=== PATIENT | female | born 1990 | race Two or more races ===

== ENCOUNTER 2016-12-14 09:28 | Emergency (ER) | payer SELFPAY ==
[~2016-12-14] VITALS: Ht 152.4 cm; Wt 70.8 kg
[2016-12-14 10:18] LABS: Basophils # (auto) 0 uL; Basophils % (auto) 0.1 % (0.0-2.0); Eosinophils # (auto) 0 uL; Hemoglobin 13.6 g/dL (12.2-16.2); Lymphocytes # (auto) 1.3 uL; Lymphocytes % (auto) 20.3 % (10.0-50.0); Mean Corpuscular Hemoglobin 29.5 pg (28.0-32.0); Mean Corpuscular Volume 86.7 fL (80.0-100.0); Mean Platelet Volume 9.4 fL (7.4-10.4); Monocytes # (auto) 0.4 uL; Monocytes % (auto) 5.9 % (0.0-12.0); Neutrophils # (auto) 4.7 uL; Neutrophils % (auto) 73.7 % (37.0-80.0); Platelet Count (auto) 161 10^3/uL (140-450); Red Cell Distribution Width 13.1 % (11.6-16.0); White Blood Cell 6.4 10^3/uL (4.4-10.8)
[2016-12-14 10:41] LABS: Albumin 3.3 g/dL (3.4-5.0); BUN/Creatinine Ratio 16.3; Bilirubin, Total 0.5 mg/dL (0.2-1.0); Calcium 8.9 mg/dL (8.5-10.1); Potassium 4.1 mmol/L (3.5-5.1); Total Protein 7.4 g/dL (6.4-8.2)
[2016-12-14 13:00] VITALS: BP 122/70
== END 2016-12-14 13:37 | disposition home or self-care (01) ==
LOC: ER 09:28
DX: O26.891 Other specified pregnancy related conditions, first trimester (principal); N89.8 Other specified noninflammatory disorders of vagina; Z3A.12 12 weeks gestation of pregnancy; R10.9 Unspecified abdominal pain
CPT/HCPCS: 36415; 76801; 80053; 84702; 85025

== ENCOUNTER 2017-04-06 19:54 | Observation (INO) | payer MEDICAID | END 2017-04-06 21:26 | disposition home or self-care (01) | DRG 566 | LOC: LDRP 19:54 | PROVIDERS: ADMIT Obstetrics & Gynecology; ATTEND Obstetrics & Gynecology | DX: O26.893 Other specified pregnancy related conditions, third trimester (principal); Z3A.28 28 weeks gestation of pregnancy | CPT/HCPCS: 59025; 76818; 81002; G0378 ==

== ENCOUNTER 2017-04-21 09:50 | Observation (INO) | payer MEDICAID ==
[2017-04-21] MEDS ORDERED: TERBUTALINE SULFATE 1 MG/ML 1ML VIAL SC ONE (10:27)
[2017-04-21] MEDS ORDERED: TERBUTALINE SULFATE 1 MG/ML 1ML VIAL SC SCH (10:30)
== END 2017-04-21 12:05 | disposition home or self-care (01) | DRG 563 ==
LOC: LDRP 09:50
PROVIDERS: ADMIT Obstetrics & Gynecology; ATTEND Obstetrics & Gynecology
DX: O60.03 Preterm labor without delivery, third trimester (principal); Z3A.30 30 weeks gestation of pregnancy
CPT/HCPCS: 59025; 76818; 81002; G0378; J3105

== ENCOUNTER 2017-04-28 11:45 | Observation (INO) | payer MEDICAID | END 2017-04-28 12:50 | disposition home or self-care (01) | DRG 566 | LOC: LDRP 11:45 | PROVIDERS: ADMIT Obstetrics & Gynecology; ATTEND Obstetrics & Gynecology | DX: O12.03 Gestational edema, third trimester (principal); Z3A.31 31 weeks gestation of pregnancy | CPT/HCPCS: 59025; 76818; 81002; G0378 ==

== ENCOUNTER 2017-05-07 11:55 | Observation (INO) | payer MEDICAID | END 2017-05-07 13:00 | disposition home or self-care (01) | DRG 563 | LOC: LDRP 11:55 | PROVIDERS: ADMIT Specialist; ATTEND Specialist | DX: O60.03 Preterm labor without delivery, third trimester (principal); Z3A.33 33 weeks gestation of pregnancy | CPT/HCPCS: 59025; 76818; 81002; G0378 ==

== ENCOUNTER 2017-05-10 12:30 | Observation (INO) | payer MEDICAID ==
[2017-05-10] MEDS ORDERED: TERBUTALINE SULFATE 1 MG/ML 1ML VIAL SC ONE (14:15)
== END 2017-05-10 15:00 | disposition home or self-care (01) | DRG 566 ==
LOC: LDRP 12:30
PROVIDERS: ADMIT Obstetrics & Gynecology; ATTEND Obstetrics & Gynecology
DX: O36.4XX0 Maternal care for intrauterine death, not applicable or unspecified (principal); O26.899 Other specified pregnancy related conditions, unspecified trimester; R10.9 Unspecified abdominal pain; Z3A.00 Weeks of gestation of pregnancy not specified
CPT/HCPCS: 59025; 76818; 81002; 96372; G0378; J3105

== ENCOUNTER 2017-05-19 12:47 | Observation (INO) | payer MEDICAID | END 2017-05-19 14:30 | disposition home or self-care (01) | DRG 566 | LOC: LDRP 12:47 | PROVIDERS: ADMIT Obstetrics & Gynecology; ATTEND Obstetrics & Gynecology | DX: O26.893 Other specified pregnancy related conditions, third trimester (principal); Z3A.34 34 weeks gestation of pregnancy; O60.03 Preterm labor without delivery, third trimester | CPT/HCPCS: 59025; 76818; 81002; G0378 ==

== ENCOUNTER 2017-05-28 12:00 | Observation (INO) | payer MEDICAID | END 2017-05-28 13:30 | disposition home or self-care (01) | DRG 566 | LOC: LDRP 12:00 | PROVIDERS: ADMIT Obstetrics & Gynecology; ATTEND Obstetrics & Gynecology | DX: O36.4XX0 Maternal care for intrauterine death, not applicable or unspecified (principal); Z3A.36 36 weeks gestation of pregnancy | CPT/HCPCS: 59025; 76818; 81002; G0378 ==

== ENCOUNTER 2017-05-31 14:45 | Observation (INO) | payer MEDICAID ==
[~2017-05-31] VITALS: Ht 152.4 cm; Wt 79.8 kg
[2017-05-31] MEDS ORDERED: CEFTRIAXONE SODIUM 2 GM in D5W 5% 50 ML IV ONE (16:15)
[2017-05-31] MEDS ORDERED: SODIUM CHLORIDE 0.9% 1,000 ML IV ONE (16:15)
[2017-05-31] MEDS ORDERED: TERBUTALINE SULFATE 1 MG/ML 1ML VIAL SC ONE (16:15)
[2017-05-31] MEDS ORDERED: PREN-96 PO (16:45)
[2017-05-31] MEDS ORDERED: NIF10C GT (16:47)
[2017-05-31] MEDS ORDERED: BETAMETHASONE ACET (6MG/ML) 5ML VIAL ONE (18:42)
[2017-05-31] MEDS ORDERED: BETAMETHASONE ACET (6MG/ML) 5ML VIAL IM SCH (19:00)
== END 2017-05-31 19:25 | disposition home or self-care (01) | DRG 566 ==
LOC: LDRP 14:45
PROVIDERS: ADMIT Specialist; ATTEND Specialist
DX: O62.9 Abnormality of forces of labor, unspecified (principal); Z3A.36 36 weeks gestation of pregnancy
CPT/HCPCS: 59025; 81002; 87086; 96365; 96372; G0378; J0696; J0702; J7030; J7060

== ENCOUNTER 2017-06-01 10:00 | Observation (INO) | payer MEDICAID ==
[~2017-06-01 10:00] MED LIST: NIF10C GT; PREN-96 PO
== END 2017-06-01 11:00 | disposition home or self-care (01) | DRG 955 ==
LOC: LDRP 10:00
PROVIDERS: ADMIT Obstetrics & Gynecology; ATTEND Obstetrics & Gynecology
DX: O26.899 Other specified pregnancy related conditions, unspecified trimester (principal); Z3A.00 Weeks of gestation of pregnancy not specified
CPT/HCPCS: 59025; 76818; 81002; 96375; G0378

== ENCOUNTER 2017-06-01 18:33 | Observation (INO) | payer MEDICAID ==
[2017-06-01] MEDS ORDERED: BETAMETHASONE ACET (6MG/ML) 5ML VIAL IM SCH (22:00)
== END 2017-06-01 19:32 | disposition home or self-care (01) | DRG 563 ==
LOC: LDRP 18:33
PROVIDERS: ADMIT Obstetrics & Gynecology; ATTEND Obstetrics & Gynecology
DX: O60.03 Preterm labor without delivery, third trimester (principal); Z3A.36 36 weeks gestation of pregnancy
CPT/HCPCS: G0378; J0702

== ENCOUNTER 2017-06-08 09:50 | Observation (INO) | payer MEDICAID | END 2017-06-08 11:40 | disposition home or self-care (01) | DRG 563 | LOC: LDRP 09:50 | PROVIDERS: ADMIT Obstetrics & Gynecology; ATTEND Obstetrics & Gynecology | DX: O60.03 Preterm labor without delivery, third trimester (principal); Z3A.37 37 weeks gestation of pregnancy | CPT/HCPCS: 59025; 76818; 81002; G0378 ==

== ENCOUNTER 2017-06-11 10:09 | Observation (INO) | payer MEDICAID | END 2017-06-11 12:05 | disposition home or self-care (01) | DRG 566 | LOC: LDRP 10:09 | PROVIDERS: ADMIT Obstetrics & Gynecology; ATTEND Obstetrics & Gynecology | DX: O36.4XX0 Maternal care for intrauterine death, not applicable or unspecified (principal); Z3A.38 38 weeks gestation of pregnancy | CPT/HCPCS: 59025; 76818; 81002; G0378 ==

== ENCOUNTER 2017-06-15 10:00 | Observation (INO) | payer MEDICAID ==
[2017-06-15] MEDS ORDERED: PREN-96 PO (11:44)
== END 2017-06-15 11:35 | disposition home or self-care (01) | DRG 566 ==
LOC: LDRP 10:00
PROVIDERS: ADMIT Specialist; ATTEND Specialist
DX: O62.9 Abnormality of forces of labor, unspecified (principal); O36.8130 Decreased fetal movements, third trimester, not applicable or unspecified; Z3A.38 38 weeks gestation of pregnancy
CPT/HCPCS: 59025; 76818; 81002; G0378

== ENCOUNTER 2017-06-18 15:00 | Observation (INO) | payer MEDICAID ==
[2017-06-23] MEDS ORDERED: NIF10C PO (16:28)
== END 2017-06-18 17:25 | disposition home or self-care (01) | DRG 566 ==
LOC: LDRP 15:00
PROVIDERS: ADMIT Specialist; ATTEND Specialist
DX: O36.8130 Decreased fetal movements, third trimester, not applicable or unspecified (principal); Z3A.39 39 weeks gestation of pregnancy
CPT/HCPCS: 59025; 76818; 81002; G0378

== ENCOUNTER 2024-10-23 09:42 | Observation (INO) | payer MEDICAID, OTHER ==
[~2024-10-23 09:42] MED LIST changes: -NIF10C GT; +NIFE10CA52 PO
--- NOTE | 2024-10-23 11:44 | DVHDS2 ---
Physician Discharge Progress N Final Diagnosis: IUP 37 wk, false labor Operations or Procedures: Operations or Procedures NST- Reactive Labor check, cx closed, not in labor Condition on Discharge: Stable Disposition: Home Discharge Instructions: Diet: Regular Activity: No Restrictions, As Tolerated Follow Up/Referral: follow up with primary OB provider as scheduled. Return to hospital for any labor related symptoms Medications: N/A Follow Up Care: Discharge Statement: "Patient was advised to return to the ER or call 911 if any headaches, dizziness, shortness of breath, chest pain, abdominal pain, bleeding, fevers, or worsening of medical condition. Patient was counseled about treatment plan, medications, possible side effects, patientverbalized understanding. All questions were answered to the best of my ability. This discharge took greater then 30 minutes in planning, reviewing documentation, counseling the patient, and discussing with other team members." PASCUAL LESLIE DO Oct 23, 2024 11:44
== END 2024-10-23 10:58 | disposition home or self-care (01) ==
LOC: UNDOADMOB 09:42 → LDRP 09:42 → UNDODISOB 10:58
PROVIDERS: ADMIT Obstetrics & Gynecology; ATTEND Obstetrics & Gynecology
DX: O62.9 Abnormality of forces of labor, unspecified (principal); Z3A.37 37 weeks gestation of pregnancy; Z79.899 Other long term (current) drug therapy; Z98.890 Other specified postprocedural states
CPT/HCPCS: 59025; 81002; 94760; G0378

== ENCOUNTER 2024-11-08 09:48 | Observation (INO) | payer OTHER ==
[~2024-11-08] VITALS: Ht 152.4 cm; Wt 84.4 kg
--- NOTE | 2024-11-08 12:02 | DVH ---
LIMITED OB ULTRASOUND > 14 WKS: HISTORY: limited PNC TECHNIQUE: Multiple real-time grayscale images of the gravid uterus with duplex Doppler color flow an d M-mode spectral analysis. TRANSDUCER: Transvaginal FINDINGS: IUP single live fetus at 36 weeks 3 days based on composite averages of the BPD, head circumference, abdominal circumference and femur length Estimated weight 3014 grams heart rate 148 beats per minute SHEBA 5.9 cm Cervix was not visualized. cephalic Presentation Grade II anterior Placenta without previa or abruption. IMPRESSION: IUP single live fetus at 36 weeks 3 days AUA corresponding to an MELINA of 2-23-25 SHEBA appears low measuring 5.9 cm.
--- NOTE | 2024-11-08 15:49 | DVHDS2 ---
Physician Discharge Progress N Final Diagnosis: labor check Operations or Procedures: Operations or Procedures nst,sono Condition on Discharge: Good Disposition: Home Discharge Instructions: Diet: Regular Activity: Light activity Medications: na Follow Up Care: Specialist: 2d Discharge Statement: "Patient was advised to return to the ER or call 911 if any headaches, dizzine ss, shortness of breath, chest pain, abdominal pain, bleeding, fevers, or worsening of medical condition. Patient was counseled about treatment plan, medications, possible side effects, patientverbalized understanding. All questions were answered to the best of my ability. This discharge took greater then 30 minutes in planning, reviewing documentation, counseling the patient, and discussing with other team members." DEION MERINO DO Nov 08, 2024 15:49
== END 2024-11-08 12:27 | disposition home or self-care (01) ==
LOC: UNDOADMOB 09:48 → LDRP 09:48 → UNDODISOB 12:27
PROVIDERS: ADMIT Obstetrics & Gynecology; ATTEND Obstetrics & Gynecology
DX: O62.9 Abnormality of forces of labor, unspecified (principal); Z98.890 Other specified postprocedural states; Z79.899 Other long term (current) drug therapy; Z3A.39 39 weeks gestation of pregnancy
CPT/HCPCS: 59025; 76805; 81002; 94760; G0378